=== PATIENT | male | born 1980 | race Caucasian/White ===

== ENCOUNTER 2017-10-21 16:08 | Emergency (ER) | payer SELFPAY ==
[2017-10-21 16:28] VITALS: BP 135/72
[2017-10-21] MEDS ORDERED: methylPREDNISolone SOD SUCC 125 MG/2 ML VIAL IM ONE (17:09)
--- NOTE | 2017-10-21 17:09 | ED Physician Documentation ---
General Adult - HISTORIAN Historian: patient - HPI Stated Complaint: Rash Chief Complaint: General Adult Onset: days ago Timing: still present Severity: moderate Further Comments: yes (Pt is a 37 yo male with pruritic rash x 4 days. Rash is on torso and extremities. Pt thinks it is poison bailee or poison sumac.) - ROS CONST: no problems EYES/ENT: none CVS/RESP: none GI/: none MS/SKIN/LYMPH: rash - PAST HX Past History: none Other History: none Allergies/Adverse Reactions: Allergies Allergy/AdvReac Type Severity Reaction Status Date / Time No Known Allergies Allergy Verified 10/21/17 16:24 Home Medications: Ambulatory Orders Medication Instructions Recorded NK 12/25/12 - SOCIAL HX Smoking History: cigarettes - FAMILY HX Family History: No - VITAL SIGNS Vital Signs: Vital Signs Temp Pulse Resp BP Pulse Ox 98.4 F 87 19 135/72 96 10/21/17 16:25 10/21/17 16:25 10/21/17 16:25 10/21/17 16:25 10/21/17 16:25 - REVIEWED ASSESSMENTS Nursing Assessment Reviewed: Yes Vitals Reviewed: Yes Progress - Progress Progress: Solu-medrol 125 mg IM in ER. d/c instructions: Rx Prednisone 10 mg. Take 6 tablets by mouth at the same time, once daily for 2 days; then take 5 tablets by mouth once daily for 2 days; then take 4 tablets by mouth once daily for 2 days; then take 3 tablets by mouth once daily for 2 days; then take 2 tablets by mouth once daily for 2 days; then take 1 tablet by mouth once daily for 2 days; then stop. May also use Benadry and Zantac (or Pepcid) as directed (available over the counter). Poison Bailee Soap (Jewelweed Soap) [place] Product. Oatmeal baths (oatmeal in pharmacy section) General Adult Physical Exam - PHYSICAL EXAM GENERAL APPEARANCE: moderate distress EENT: eye inspection normal, pharynx normal NECK: normal inspection, supple RESPIRATORY: no resp distress, chest non-tender, breath sounds normal CVS: reg rate & rhythm, heart sounds normal BACK: other (rash) SKIN: other (erythematous rash on torso and extremities, c/w poison bailee) EXTREMITIES: non-tender, normal range of motion, no evidence of injury NEURO: oriented X3, motor nml, sensation nml Discharge Clincal Impression: Poison Bailee Referrals: Primary Doctor,No [Primary Care Provider] - Condition: Stable Disposition: 01 HOME, SELF-CARE Decision to Admit: NO Decision Time: 17:20
== END 2017-10-21 17:25 | disposition home or self-care (01) ==
LOC: ED 16:08
DX: L23.7 Allergic contact dermatitis due to plants, except food (principal)
CPT/HCPCS: 96372; 99283; J2930